=== PATIENT | male | born 1985 | race Caucasian/White ===

== ENCOUNTER 2017-07-17 20:54 | Emergency (ER) | payer OTHER ==
[~2017-07-17] VITALS: Ht 177.8 cm; Wt 93.4 kg
[~2017-07-17 20:54] MED LIST: CYCL10 PO; IBUP800 PO
== END 2017-07-17 22:09 | disposition short-term general hospital (02) ==
LOC: ER 20:54
DX: S55.111A Laceration of radial artery at forearm level, right arm, initial encounter (principal); F17.200 Nicotine dependence, unspecified, uncomplicated; W22.8XXA Striking against or struck by other objects, initial encounter
CPT/HCPCS: 36415; 99285